=== PATIENT | female | born 1985 | race Caucasian/White ===

== ENCOUNTER 2020-09-09 09:27 | Outpatient (CLI) | payer OTHER | END 2020-09-09 09:32 | disposition home or self-care (01) | LOC: SONOGRAMA 09:27 | PROVIDERS: ATTEND Pathology Anatomic Pathology & Clinical Pathology | DX: E04.2 Nontoxic multinodular goiter (principal) ==

== ENCOUNTER → 2020-11-15 | Outpatient (CLI) | payer OTHER | END | disposition home or self-care (01) | LOC: OFIC 805 09:55 | PROVIDERS: ATTEND Otolaryngology Otology & Neurotology | DX: H83.02 Labyrinthitis, left ear (principal); R42 Dizziness and giddiness; H90.3 Sensorineural hearing loss, bilateral ==

== ENCOUNTER 2020-12-11 09:08 | Outpatient (CLI) | payer OTHER | END 2020-12-11 09:27 | disposition home or self-care (01) | LOC: OFIC 805 09:08 | PROVIDERS: ATTEND Otolaryngology Otology & Neurotology | DX: H90.42 Sensorineural hearing loss, unilateral, left ear, with unrestricted hearing on the contralateral side (principal); H83.02 Labyrinthitis, left ear; R42 Dizziness and giddiness ==